=== PATIENT | female | born 1950 | race Asian ===

== ENCOUNTER 2019-03-30 08:14 | Day surgery (SDC) | payer OTHER ==
[2019-03-19 09:29] VITALS: BMI 30.3
[2019-03-30] MEDS: PHENYLEPHRINE 2.5% OPHTH SOLN 15 ML BOTTLE OS SCH ×5 (08:45→09:05)
[2019-03-30] MEDS: OFLOXACIN 0.3% OPHTHALMIC SOLUTION 5 ML BOTTLE OS SCH ×5 (08:45→09:05)
[2019-03-30] MEDS: KETOROLAC TROMETHAMINE 0.5% EYE DROP 1 DROP DROPS OS SCH ×5 (08:45→09:05)
[2019-03-30] MEDS: TROPICAMIDE 1% OPHTH SOLN 15 ML BOTTLE OS SCH ×5 (08:45→09:05)
[2019-03-30] MEDS: CYCLOPENTOLATE HCL 1% OPHTH SOLN 2 ML BOTTLE OS SCH ×5 (08:45→09:05)
[2019-03-30] MEDS ORDERED: EPI-SHUGARCAINE (EPINEPHRINE 0.025% & LIDOCAINE-PF 0.75%) 4ML ONE (09:37)
[2019-03-30] MEDS ORDERED: POVIDONE-IODINE 5% OPHTHALMIC PREP 30 ML SOLUTION ONE (09:38)
[2019-03-30] MEDS ORDERED: ACETYLCHOLINE 1:100 INTRA-OCUL 20 MG/2 ML KIT ONE (09:38)
[2019-03-30] MEDS ORDERED: MIDAZOLAM HCL 2 MG/2 ML SINGLE DOSE VIAL ONE (09:54)
[2019-03-30] MEDS ORDERED: BSS (NA/CA/MG/K) BALANCED SALT SOLUTION OPHTH SOLN 15 ML BOTTLE ONE (10:29)
[2019-03-30] MEDS ORDERED: ACETAMINOPHEN 325 MG TABLET (FP) PO PRN (11:11)
[2019-03-30 11:22] VITALS: TEMP 98.5
--- NOTE | 2019-03-30 11:39 | OP ---
DATE OF OPERATION: 03/30/2019 PREOPERATIVE DIAGNOSIS: Cataract, left eye. POSTOPERATIVE DIAGNOSIS: Cataract, left eye. PROCEDURE: Cataract extraction via phacoemulsification with insertion of posterior chamber lens implant, left eye. SURGEON: Power Ritter MD ESCROW CLOSER: Noemy De MD ANESTHESIA: Topical with sedation. ESTIMATED BLOOD LOSS: Less than 1 mL. SPECIMENS: None. COMPLICATIONS: None. DESCRIPTION OF PROCEDURE: The patient was identified in the holding area. After all risks, benefits, and alternatives were explained to the patient, informed consent was obtained. The left eye was marked with a marking pen. The patient then entered the operating room on an eye stretcher. After a formal time-out was performed, topical tetracaine eye drops were instilled onto the left eye. The left eye was then prepped and draped in the usual sterile fashion. An eyelid speculum was placed beneath the eyelid of the left eye. An inferotemporal paracentesis incision was created using a 15-degree blade. Topical preservative-free epinephrine and preservative-free lidocaine was then injected into the anterior chamber. Viscoelastic was then injected into the anterior chamber. A 2.4-mm keratome blade was then used to make a superotemporal incision. A 360-degree continuous curvilinear capsulorrhexis was then created using bent cystotome and Utrata forceps. Hydrodissection was performed using balanced saline solution on a cannula. Phacoemulsification was introduced to disassemble and remove the nucleus in its entirety. During phacoemulsification steps, a very small posterior capsular hole was noted at the 7 o'clock area with 12 o'clock being at the patient's head. It was noted that there was no vitreous prolapse at the time. Therefore, Provisc was then injected. The bag height was lowered, and using low-flow fluidics, the rest of the remaining cortical material was removed. Of note, it was noted that upon inspection a small, looked like nuclear fragment had migrated into the vitreous jelly. During the whole course of the phacoemulsification as well as irrigation I/A, there was no vitreous noted to have prolapsed. Then it was determined that there was plenty of capsular bag remaining. Therefore, a 1 piece [id number] with a power of 21.5 diopter serial number [id number] was inspected, found to be defect free, and injected into the capsular bag. Again, no vitreous was noted. All wounds were tracked for vitreous using . Then, a gentle irrigation aspiration was used to remove any remaining viscoelastic from the eye, and all wounds were hydrated with balanced saline solution. Noted to be watertight. Upon inspection, there was no vitreous prolapse at all. The lens was perfectly centered into the capsular bag, and the pupil was round, and the anterior chamber was deep. There was a red reflex present. The eye had an adequate pressure. It was noted to be observed again that the small nuclear fragment was observed in the vitreous cavity. Then topical antibiotic eyedrops and ointment were then administered to the left eye. The eyelid speculum was removed from the left eye. The left eye was shielded. The patient tolerated the procedure well. Left the operating room in stable condition to follow up in the eye clinic tomorrow morning at 10 o'clock. Stewart [id number]
[2019-03-30 11:45] VITALS: BP 125/67; PULSE 81
== END 2019-03-30 11:50 | disposition home or self-care (01) ==
LOC: FASU 08:14
PROVIDERS: ATTEND Ophthalmology
PROC: 08RK3JZ Replacement of Left Lens with Synthetic Substitute, Percutaneous Approach (ICD-10-PCS; principal; 2019-03-30 10:07)
DX: H26.9 Unspecified cataract (principal)
CPT/HCPCS: 82962